=== PATIENT | female | born 2000 | race Caucasian/White ===

== ENCOUNTER 2024-05-31 00:31 | Emergency (ER) | payer BC ==
[2024-05-31] MEDS ORDERED: Lorazepam 2 MG/ML VIAL ONE (01:02)
[2024-05-31 01:09] LABS: #Basophils 0.1 thou/uL (0.0-0.2); #Eosinphils 0.1 thou/uL (0.0-0.7); #Monocytes 0.9 thou/uL (0.11-0.59); #Neutrophils 5.9 thou/uL (1.40-6.50); %Basophils 0.6 % (0.0-1.0); %Monocytes 9.6 % (0.0-10.0); %Neutrophils 66.7 % (42.0-75.0); Hematocrit 35.3 % (36.0-47.0); Mean Corpuscular Volume 85.4 fl (78.0-98.0); Mean Platelet Volume 8.6 fL (7.4-10.4); Platelet Count 258 10x3/uL (130-400); RBC Distribution Width 11.4 % (11.5-14.5); Red Blood Cell (RBC) Count 4.13 mill/uL (4.20-5.40); White Blood Cell (WBC) Count 8.9 10x3/uL (4.8-10.8)
[2024-05-31 01:33] LABS: Anion Gap 14 mmol/L (10-20); BUN (Urea Nitrogen) 10 mg/dL (7.0-18.7); Calc. Creatinine Clearance 0 mL/min (70-130); Calcium 8.9 mg/dL (7.8-10.44); Carbon Dioxide 19 mmol/L (22-29); Chloride 109 mmol/L (98-107); Estimated GFR 109; Glucose 114 mg/dL (70-105); Potassium 3.5 mmol/L (3.5-5.1); Sodium 138 mmol/L (136-145)
[2024-05-31 01:39] LABS: Troponin I Less than 0.010 ng/mL (< 0.028)
== END 2024-05-31 01:58 | disposition home or self-care (01) ==
LOC: BURERS 00:31
DX: R07.89 Other chest pain (principal)
CPT/HCPCS: 36415; 71045; 80048; 84484; 85025; 93005; 96374; J2060